=== PATIENT | female | born 1985 | race African-American/Black ===

== ENCOUNTER → 2021-02-25 | Outpatient (CLI) | payer OTHER ==
[~2021-02-25] MED LIST: CEFADROXIL500 MG PO; PROTONIX40 MG PO; [UNRECOGNIZED DRUG - OTHER] PO
== END | disposition home or self-care (01) ==
LOC: PPH VACUNA 09:11
PROVIDERS: ATTEND Emergency Medicine Pediatric Emergency Medicine
DX: Z23 Encounter for immunization (principal)

== ENCOUNTER → 2021-05-03 13:55 | Outpatient (CLI) | payer OTHER | END | disposition home or self-care (01) | LOC: PPH VACUNA 13:55 | PROVIDERS: ATTEND Emergency Medicine Pediatric Emergency Medicine | DX: Z23 Encounter for immunization (principal) ==

== ENCOUNTER 2022-01-25 15:37 | Outpatient (CLI) | payer OTHER | END 2022-01-25 15:42 | disposition home or self-care (01) | LOC: PPH VACUNA 15:37 | PROVIDERS: ATTEND Emergency Medicine Pediatric Emergency Medicine | DX: Z23 Encounter for immunization (principal) ==

== ENCOUNTER 2023-02-09 11:50 | Outpatient (CLI) | payer OTHER | END 2023-02-09 12:00 | disposition home or self-care (01) | LOC: PPH VACUNA 11:50 | PROVIDERS: ATTEND Emergency Medicine Pediatric Emergency Medicine | DX: Z23 Encounter for immunization (principal) ==

== ENCOUNTER 2023-06-09 06:42 | Outpatient (CLI) | payer OTHER ==
[2023-06-09 07:31] LABS: HEMOGLOBIN 13.1 g/dL (12.0-15.00); MEAN CELL VOLUME 88.4 fL (80.00-100.00); MEAN CORPUSCULAR HEMOGLOBIN 29.7 pg (27.00-32.0); MEAN CORPUSCULAR HGB CONC 33.6 g/dl (32.0-36.0); PLATELET COUNT 373 K/uL (150-450); RED BLOOD COUNT 4.41 M/uL (4.00-6.00); RED CELL DISTRIBUTION WIDTH 13.8 % (11.5-14.5)
[2023-06-09 07:48] LABS: URINE APPEARANCE Clear; URINE BILIRRUBIN Negative (NEGATIVE); URINE BLOOD Negative; URINE COLOR Yellow; URINE GLUCOSE Negative (NEGATIVE); URINE LEUKOCYTE Moderate; URINE NITRATE Negative; URINE PROTEIN Negative (NEGATIVE); URINE UROBILINOGEN 0.2 E.U./dl
[2023-06-09 07:49] LABS: URINE BACTERIA 4388.2 uL (0.0-1933); URINE EPITHELIAL CELLS 68.7 uL (0.0-38.8); URINE WBC 264.4 uL (0.0-23.2)
[2023-06-09 08:11] LABS: ALBUMIN 3.5 gm/dL (3.4-5.0); BILIRUBIN TOTAL 0.84 mg/dL (0.3-1.2); CALCIUM 9.2 mg/dL (8.5-10.1); CHOL HDL RATIO 2.8 (0-5.0); CREATININE SERUM 0.67 mg/dL (0.55-1.02); GFR 99.04; GLOBULINA 3.9 G/DL (2.4-3.5); POTASSIUM 4.11 mEq/L (3.5-5.1); TOTAL PROTEIN 7.4 gm/dL (6.4-8.2); TSH 2.54 uIU/mL (0.358-3.74)
[2023-06-09 08:55] LABS: URINE MUCUS MODERATE; URINE RBC 1.2 uL (0.0-20.8)
== END 2023-06-09 23:00 | disposition home or self-care (01) ==
LOC: LAB 06:42
PROVIDERS: ATTEND Internal Medicine Cardiovascular Disease
DX: D64.9 Anemia, unspecified (principal); N39.0 Urinary tract infection, site not specified; R10.9 Unspecified abdominal pain; E03.9 Hypothyroidism, unspecified; E78.5 Hyperlipidemia, unspecified; E55.9 Vitamin D deficiency, unspecified; I10 Essential (primary) hypertension

== ENCOUNTER → 2023-06-21 15:55 | Outpatient (CLI) | payer OTHER | END | disposition home or self-care (01) | LOC: SONOGRAMA 06-20 14:59 | PROVIDERS: ATTEND Surgery | DX: K80.20 Calculus of gallbladder without cholecystitis without obstruction (principal) ==

== ENCOUNTER 2023-12-06 07:03 | Outpatient (CLI) | payer OTHER ==
[2023-12-06 07:36] LABS: HEMATOCRIT 37.1 % (36.0-45.00); HEMOGLOBIN 12.7 g/dL (12.0-15.00); MEAN CELL VOLUME 90.2 fL (80.00-100.00); MEAN CORPUSCULAR HEMOGLOBIN 30.9 pg (27.00-32.0); MEAN CORPUSCULAR HGB CONC 34.2 g/dl (32.0-36.0); PLATELET COUNT 314 K/uL (150-450); RED BLOOD COUNT 4.12 M/uL (4.00-6.00); RED CELL DISTRIBUTION WIDTH 13.7 % (11.5-14.5)
[2023-12-06 07:39] LABS: URINE APPEARANCE Clear; URINE BILIRRUBIN Negative (NEGATIVE); URINE BLOOD Negative; URINE COLOR Yellow; URINE GLUCOSE Negative (NEGATIVE); URINE KETONE Negative (NEGATIVE); URINE LEUKOCYTE Trace; URINE NITRATE Negative; URINE PROTEIN Negative (NEGATIVE)
[2023-12-06 07:43] LABS: URINE BACTERIA 500.1 uL (0.0-1933); URINE EPITHELIAL CELLS 14.5 uL (0.0-38.8); URINE RBC 34.9 uL (0.0-20.8); URINE WBC 32.9 uL (0.0-23.2)
[2023-12-06 08:25] LABS: ALBUMIN 3.5 gm/dL (3.4-5.0); BILIRUBIN TOTAL 0.75 mg/dL (0.3-1.2); CALCIUM 9.2 mg/dL (8.5-10.1); CREATININE SERUM 0.6 mg/dL (0.55-1.02); GFR 111.88; GLOBULINA 3.5 G/DL (2.4-3.5); POTASSIUM 4.36 mEq/L (3.5-5.1); TSH 1.88 uIU/mL (0.358-3.74)
== END 2023-12-06 07:10 | disposition home or self-care (01) ==
LOC: LAB 07:03
PROVIDERS: ATTEND Internal Medicine Cardiovascular Disease
DX: D64.9 Anemia, unspecified (principal); N39.0 Urinary tract infection, site not specified; R10.9 Unspecified abdominal pain; E55.9 Vitamin D deficiency, unspecified; I10 Essential (primary) hypertension

== ENCOUNTER 2024-06-10 08:00 | Outpatient (CLI) | payer OTHER | END 2024-08-06 08:10 | disposition home or self-care (01) | LOC: PPH VACUNA 08:00 | PROVIDERS: ATTEND Emergency Medicine Pediatric Emergency Medicine | DX: Z23 Encounter for immunization (principal) ==

== ENCOUNTER 2025-04-09 11:13 | Emergency (ER) | payer OTHER ==
[~2025-04-09] VITALS: Ht 160 cm; Wt 72.6 kg
[2025-04-09] MEDS ORDERED: COZAAR50 MG PO (11:19)
[2025-04-09 12:13] LABS: EOS # 0.23 (0.04-0.54); EOS % 2.9 % (0.7-7.0); LYMPH # 2.57 (1.18-3.74); LYMPH % 32.2 % (19.3-53.1); MEAN PLATELET VOLUME 9.50 fl (9.4-12.4); MONO # 0.69 (0.24-0.82); MONO % 8.6 % (4.7-12.5); NEUT # 4.30 (1.56-6.13); NEUT % 53.9 % (34.0-71.1); RED CELL DISTRIBUTION WIDTH 13.2 % (11.6-14.4)
[2025-04-09 12:18] LABS: BASO % 2.3 % (0.1-1.2)
[2025-04-09 12:39] LABS: INR 1.03
[2025-04-09 12:41] LABS: BUN CREA RATIO 13.0 (7.0-25.0); CREATININE SERUM 0.64 mg/dL (0.55-1.02); GFR 103.31; GLUCOSE FASTING 111.0 mg/dL (65-100); OSMOLALITY SERUM 278.0 MOSM/KG (275-295)
== END 2025-04-09 14:41 | disposition home or self-care (01) ==
LOC: ER 11:13
PROVIDERS: General Practice
DX: R00.2 Palpitations (principal); F41.8 Other specified anxiety disorders; I10 Essential (primary) hypertension; Z91.013 Allergy to seafood

== ENCOUNTER → 2025-04-16 09:33 | Outpatient (CLI) | payer OTHER ==
[2025-04-16 07:29] LABS: URINE APPEARANCE Clear; URINE BILIRRUBIN Negative (NEGATIVE); URINE BLOOD Small; URINE COLOR Yellow; URINE GLUCOSE Negative (NEGATIVE); URINE KETONE Negative (NEGATIVE); URINE LEUKOCYTE Moderate; URINE NITRATE Negative; URINE PROTEIN Negative (NEGATIVE); URINE UROBILINOGEN 0.2 E.U./dl
[2025-04-16 07:33] LABS: URINE BACTERIA 2915.9 uL (0.0-1933); URINE CAST 1.41 uL (0.0-1.40); URINE EPITHELIAL CELLS 44.4 uL (0.0-38.8); URINE WBC 163.2 uL (0.0-23.2)
[2025-04-16 07:42] LABS: EOS # 0.42 (0.04-0.54); EOS % 5.9 % (0.7-7.0); LYMPH # 2.11 (1.18-3.74); LYMPH % 29.5 % (19.3-53.1); MEAN PLATELET VOLUME 9.80 fl (9.4-12.4); MONO # 0.59 (0.24-0.82); MONO % 8.3 % (4.7-12.5); NEUT # 3.84 (1.56-6.13); NEUT % 53.7 % (34.0-71.1); RED CELL DISTRIBUTION WIDTH 13.6 % (11.6-14.4)
[2025-04-16 07:56] LABS: BASO % 2.5 % (0.1-1.2)
[2025-04-16 08:03] LABS: URINE RBC 1.6 uL (0.0-20.8)
[2025-04-16 08:31] LABS: ALT/SGPT 17.0 U/L (12-78); AST/SGOT 12.0 U/L (15-37); BILIRUBIN TOTAL 0.64 mg/dL (0.3-1.2); BUN CREA RATIO 14.0 (7.0-25.0); CHOL HDL RATIO 3.0 (0-5.0); CREATININE SERUM 0.64 mg/dL (0.55-1.02); GFR 103.31; GLOBULINA 3.8 G/DL (2.4-3.5); GLUCOSE FASTING 96.0 mg/dL (65-100); HDL 60.0 mg/dl (40-60); LDL 102.0 mg/dl (0-130); OSMOLALITY SERUM 280.0 MOSM/KG (275-295); TSH 2.17 uIU/mL (0.358-3.74); VLDL 17.0 (0-39)
[~2025-04-16 09:33] MED LIST changes: +COZAAR50 MG PO
== END | disposition home or self-care (01) ==
LOC: LAB 09:33
PROVIDERS: ATTEND Internal Medicine Cardiovascular Disease
DX: D64.9 Anemia, unspecified (principal); N39.0 Urinary tract infection, site not specified; R10.9 Unspecified abdominal pain; E03.9 Hypothyroidism, unspecified; E78.5 Hyperlipidemia, unspecified; R07.9 Chest pain, unspecified; E55.9 Vitamin D deficiency, unspecified; I10 Essential (primary) hypertension

== ENCOUNTER 2025-05-06 09:30 | Outpatient (CLI) | payer OTHER | END 2025-05-06 09:40 | disposition home or self-care (01) | LOC: PPH VACUNA 09:30 | PROVIDERS: ATTEND Emergency Medicine Pediatric Emergency Medicine | DX: Z23 Encounter for immunization (principal) ==